=== PATIENT | female | born 1975 | race African-American/Black ===

== ENCOUNTER 2018-10-18 10:30 | Inpatient (IN) | payer BC, MEDICAID ==
[~2018-10-18] VITALS: Ht 160 cm; Wt 63.5 kg
[2018-10-18] MEDS ORDERED: ATOR10TA69 PO (10:43)
[2018-10-18] MEDS ORDERED: METF-815 PO (10:43)
[2018-10-18] MEDS ORDERED: ASPIRIN 325MG EC TABLET PO ONE (11:15)
[2018-10-18] MEDS ORDERED: NITROGLYCERIN OINT 1GM/INCH UDPKT TD ONE (11:15)
[2018-10-18 11:31] LABS: CLARITY URINE CLEAR (CLEAR); COLOR URINE YELLOW (YELLOW); KETONES URINE NEGATIVE (NEGATIVE); LEUKOCYTE ESTERASE URINE NEGATIVE (NEGATIVE); NITRITE URINE NEGATIVE (NEGATIVE); OCCULT BLOOD URINE 1+ (NEGATIVE); PH URINE 5.5 (4.5-8.0); PROTEIN URINE NEGATIVE (NEGATIVE); SPECIFIC GRAVITY URINE 1.011 (1.005-1.030); UROBILINOGEN URINE 0.2 E.U./dL (0.2-1.0)
[2018-10-18 11:42] LABS: BASOPHILS % 1.2 % (0.0-2.0); EOSINOPHILS % 4.7 % (0.0-5.0); HEMATOCRIT. 35.9 % (36.0-48.0); HEMOGLOBIN. 11.4 g/dL (12.0-16.0); LYMPHOCYTES % 31.2 % (20.0-50.0); MEAN CORPUSCULAR HEMOGLOBIN 24.3 pg (28.0-32.0); MEAN CORPUSCULAR VOLUME 76.4 fL (81.0-99.0); MEAN PLATELET VOLUME 8.5 fl (7.4-10.4); MONOCYTES % 6.4 % (2.0-8.0); NEUTROPHILS % 56.5 % (40.0-76.0); PLATELET 274 x1000/uL (130-400); RED CELL DISTRIBUTION WIDTH 18.6 % (11.6-14.6)
[2018-10-18 11:47] LABS: CHLORIDE 105 mEq/L (98-107)
[2018-10-18 11:51] LABS: D-DIMER 0.23 mg/L FEU (<0.50); PROTHROMBIN TIME 10.4 sec (9.1-11.1)
[2018-10-18 12:13] LABS: HCG SCREEN NEGATIVE
[2018-10-18] MEDS ORDERED: LORAZEPAM 0.5MG TABLET PO PRN (14:45)
[2018-10-18] MEDS ORDERED: GUAIFENESIN 200MG/10ML SUGAR FREE UDC PO PRN (14:45)
[2018-10-18] MEDS ORDERED: HYDROCODONE/ACETAMINOPHEN 5/325MG TABLET PO PRN (14:45)
[2018-10-18] MEDS ORDERED: MAGNESIUM/ALUMINUM HYDROXIDE/SIMETHICONE 30ML UDC PO PRN (14:45)
[2018-10-18] MEDS ORDERED: ACETAMINOPHEN 325MG TABLET PO PRN (14:45)
[2018-10-18] MEDS ORDERED: IPRATROPIUM/ALBUTEROL 0.5-3(2.5)MG/3ML NEB INH PRN (14:45)
[2018-10-18] MEDS ORDERED: DOCUSATE SODIUM 100MG CAPSULE PO PRN (14:45)
[2018-10-18] MEDS ORDERED: ONDANSETRON HCL 4MG/2ML INJ IV PRN (14:45)
[2018-10-18] MEDS ORDERED: CLONIDINE 0.1MG TABLET PO PRN (14:45)
[2018-10-18] MEDS ORDERED: DIPHENHYDRAMINE 50MG/ML VIAL IV PRN (14:45)
[2018-10-18] MEDS ORDERED: NA PHOS,M-B/NA PHOS,DI-BA ENEMA 118ML PR PRN (14:45)
[2018-10-18] MEDS ORDERED: DEXTROSE 50% WATER 50ML SYRINGE IV PRN (14:45)
[2018-10-18] MEDS ORDERED: ACETAMINOPHEN 650MG SUPP PR PRN (14:45)
[2018-10-18] MEDS ORDERED: REGADENOSON 0.4 MG/5 ML IV NR (15:15)
[2018-10-18 16:30] VITALS: BP 145/90
[2018-10-18 16:40] VITALS: BP 145/90
[2018-10-18 17:00] VITALS: BP 145/90
[2018-10-18] MEDS: INSULIN LISPRO 100 UNITS/ML SUBCUT SCH ×2 (17:30→21:59)
[2018-10-18] MEDS: BLOOD SUGAR DIAGNOSTIC STRIP TEST SCH ×2 (17:30→21:59)
[2018-10-18] MEDS: LOSARTAN POTASSIUM 25 MG TABLET PO SCH (17:34)
[2018-10-18] MEDS: AMLODIPINE 2.5MG TABLET PO SCH (17:34)
[2018-10-18 20:00] VITALS: BP 128/75
[2018-10-18] MEDS ORDERED: ENOXAPARIN 40MG/0.4ML SYR SUBCUT SCH (20:00)
[2018-10-19] VITALS: BP 120/66
[2018-10-19 00:57] LABS: *AMPHETAMINES SCREEN URINE NEGATIVE (NEGATIVE); *BARBITURATES SCREEN URINE NEGATIVE (NEGATIVE); *BENZODIAZEPINES SCREEN URINE NEGATIVE (NEGATIVE); *COCAINE SCREEN URINE NEGATIVE (NEGATIVE); METHADONE URINE SCREEN NEGATIVE (NEGATIVE); OPIATES URINE SCREEN NEGATIVE (NEGATIVE)
[2018-10-19 00:58] LABS: CANNABINOID URINE SCREEN NEGATIVE (NEGATIVE); PHENCYCLIDINE URINE SCREEN NEGATIVE (NEGATIVE)
[2018-10-19 04:00] VITALS: BP 129/72
[2018-10-19 06:47] LABS: BASOPHILS % 1.1 % (0.0-2.0); EOSINOPHILS % 5.1 % (0.0-5.0); HEMOGLOBIN. 11.5 g/dL (12.0-16.0); LYMPHOCYTES % 37.3 % (20.0-50.0); MEAN CORPUSCULAR HEMOGLOBIN 24.4 pg (28.0-32.0); MEAN CORPUSCULAR VOLUME 76.6 fL (81.0-99.0); MEAN PLATELET VOLUME 8.5 fl (7.4-10.4); MONOCYTES % 7.3 % (2.0-8.0); NEUTROPHILS % 49.2 % (40.0-76.0); PLATELET 263 x1000/uL (130-400); RED CELL DISTRIBUTION WIDTH 19.2 % (11.6-14.6)
[2018-10-19] MEDS: BLOOD SUGAR DIAGNOSTIC STRIP TEST SCH ×2 (07:19→11:26)
[2018-10-19] MEDS: INSULIN LISPRO 100 UNITS/ML SUBCUT SCH ×2 (07:20→12:50)
[2018-10-19 07:28] LABS: CHLORIDE 106 mEq/L (98-107)
[2018-10-19 07:51] LABS: PHOSPHORUS 4.2 mg/dL (2.5-4.9)
[2018-10-19 07:52] LABS: LDL CHOLESTEROL 83 mg/dL (5-100)
[2018-10-19 07:53] LABS: CREATINE KINASE 41 IU/L (26-192); CREATINE KINASE MB FRACTION < 1.0 ng/mL (0.5-3.6); HDL CHOLESTEROL 66 mg/dL (40-59)
[2018-10-19 07:54] LABS: T4 FREE 1.25 ng/dL (0.76-1.46)
[2018-10-19 08:00] VITALS: BP 133/74
[2018-10-19] MEDS: AMLODIPINE 2.5MG TABLET PO SCH ×2 (09:00→10:56)
[2018-10-19] MEDS: LOSARTAN POTASSIUM 25 MG TABLET PO SCH ×2 (09:00→10:56)
[2018-10-19] MEDS: ASPIRIN 81MG EC TABLET PO SCH ×2 (09:00→10:57)
[2018-10-19] MEDS ORDERED: REGADENOSON 0.4 MG/5 ML IV ONE (12:09)
[2018-10-19 12:30] VITALS: BP 125/90
[2018-10-19 16:00] VITALS: BP 121/76
[2018-10-19 16:22] VITALS: BP 121/76
== END 2018-10-19 17:54 | disposition home or self-care (01) | DRG 313 ==
LOC: ER 10:30 → 6WST 13:23 → EDBEDREQ 13:27 → ENRESERV 14:54
PROVIDERS: ADMIT Internal Medicine; ATTEND Internal Medicine
DX: R07.89 Other chest pain (principal); E11.65 Type 2 diabetes mellitus with hyperglycemia; E78.00 Pure hypercholesterolemia, unspecified; R06.02 Shortness of breath; E78.5 Hyperlipidemia, unspecified; D64.9 Anemia, unspecified; I10 Essential (primary) hypertension; Z82.49 Family history of ischemic heart disease and other diseases of the circulatory system; Z98.891 History of uterine scar from previous surgery; Z79.84 Long term (current) use of oral hypoglycemic drugs; Z79.899 Other long term (current) drug therapy
CPT/HCPCS: 36415; 71045; 78452; 80061; 80305; 82550; 82553; 82962; 83036; 83605; 83735; 83880; 84100; 84439; 84443; 84484; 84703; 85379; 87804; 93005; 93017; 93306; 93970; 99285; A9500; J1650; J1815; J2785